=== PATIENT | male | born 1950 | race African-American/Black ===

== ENCOUNTER 2016-04-29 14:30 | Emergency (ER) | payer MEDICAID, MEDICARE ==
[~2016-04-29] VITALS: Ht 185.4 cm; Wt 82.0 kg
[~2016-04-29 14:30] MED LIST: AMOX500T2 PO; ASPI-864 PO; DOXA4TAB3 PO; NIFE30TA8 PO
[2016-04-29] MEDS ORDERED: MORPHINE SULFATE 4 MG/ML CPJ (NOT FOR IM USE) IV ONE (18:00)
[2016-04-29] MEDS ORDERED: ONDANSETRON HCL 4MG/2ML VIAL IV ONE (18:00)
[2016-04-29 19:59] VITALS: BP 142/85
== END 2016-04-29 20:17 | disposition home or self-care (01) ==
LOC: ER 15:25
DX: T81.30XA Disruption of wound, unspecified, initial encounter (principal); Y83.8 Other surgical procedures as the cause of abnormal reaction of the patient, or of later complication, without mention of misadventure at the time of the procedure; Y92.89 Other specified places as the place of occurrence of the external cause; I12.9 Hypertensive chronic kidney disease with stage 1 through stage 4 chronic kidney disease, or unspecified chronic kidney disease; N18.9 Chronic kidney disease, unspecified; I69.354 Hemiplegia and hemiparesis following cerebral infarction affecting left non-dominant side; E78.00 Pure hypercholesterolemia, unspecified; Z79.82 Long term (current) use of aspirin
CPT/HCPCS: 96374; 96375; 99284; J2270; J2405; Z7610

== ENCOUNTER 2016-10-15 16:48 | Emergency (ER) | payer MEDICARE ==
[~2016-10-15] VITALS: Ht 180.3 cm; Wt 79.0 kg
[2016-10-15 21:55] VITALS: BP 109/65
== END 2016-10-15 22:52 | disposition home or self-care (01) ==
LOC: ER 17:53
DX: R58 Hemorrhage, not elsewhere classified (principal); Z88.6 Allergy status to analgesic agent; Z79.82 Long term (current) use of aspirin; Z85.89 Personal history of malignant neoplasm of other organs and systems
CPT/HCPCS: 99283

== ENCOUNTER 2016-10-22 09:42 | Emergency (ER) | payer MEDICARE ==
[~2016-10-22] VITALS: Ht 182.9 cm; Wt 80.0 kg
[2016-10-22] MEDS ORDERED: LIDOCAINE HCL 1% 20ML VIAL (Pyxis) INJ MC ONE (11:00)
[2016-10-22] MEDS ORDERED: VANCOMYCIN 1 G PREMIX 200 ML IV SCH (11:45)
[2016-10-22 12:33] LABS: CHLORIDE 108 mEq/L (98-107)
[2016-10-22 12:34] LABS: BASOPHILS % 0.8 % (0.0-2.0); EOSINOPHILS % 0.9 % (0.0-5.0); HEMATOCRIT. 37.9 % (42.0-52.0); LYMPHOCYTES % 28.9 % (20.0-50.0); MEAN CORPUSCULAR HEMOGLOBIN 31.8 pg (28.0-32.0); MEAN CORPUSCULAR VOLUME 92.5 fL (80.0-94.0); MEAN PLATELET VOLUME 8.1 fl (7.4-10.4); MONOCYTES % 7.7 % (2.0-8.0); NEUTROPHILS % 61.7 % (40.0-76.0); PLATELET 207 x1000/uL (130-400); RED CELL DISTRIBUTION WIDTH 13.6 % (11.6-14.6)
[2016-10-22 12:36] LABS: INR 1.1; PROTHROMBIN TIME 11.1 sec (9.4-11.6)
[2016-10-22 12:42] LABS: CARBON DIOXIDE 23 mEq/L (21-32)
[2016-10-22] MEDS ORDERED: MORPHINE SULFATE 4 MG/ML CPJ (NOT FOR IM USE) IV ONE (13:15)
[2016-10-22 15:05] VITALS: BP 151/91
== END 2016-10-22 15:12 | disposition short-term general hospital (02) ==
LOC: ER 10:08
DX: L98.499 Non-pressure chronic ulcer of skin of other sites with unspecified severity (principal); R58 Hemorrhage, not elsewhere classified; M86.9 Osteomyelitis, unspecified; F17.210 Nicotine dependence, cigarettes, uncomplicated; Z88.6 Allergy status to analgesic agent; Z79.82 Long term (current) use of aspirin; Z85.89 Personal history of malignant neoplasm of other organs and systems; Z86.73 Personal history of transient ischemic attack (TIA), and cerebral infarction without residual deficits
CPT/HCPCS: 36415; 73130; 80053; 85025; 85610; 85651; 86141; 96365; 96375; 99285; J2270; J3370; J3490

== ENCOUNTER 2016-10-29 09:14 | Emergency (ER) | payer MEDICARE ==
[~2016-10-29] VITALS: Ht 175.3 cm; Wt 75.0 kg
[2016-10-29 13:15] VITALS: BP 148/82
== END 2016-10-29 13:34 | disposition home or self-care (01) ==
LOC: ER 12:02
DX: Z48.00 Encounter for change or removal of nonsurgical wound dressing (principal)
CPT/HCPCS: 99283

== ENCOUNTER 2025-02-09 01:28 | Inpatient (IN) | payer MEDICARE, MEDICAID ==
[~2025-02-09] VITALS: Ht 175.3 cm; Wt 78.6 kg
[2025-02-09 01:44] VITALS: O2SAT 96
[2025-02-09 03:03] LABS: BASOPHILS % 0.3 % (0.0-2.0); EOSINOPHILS % 1.1 % (0.0-5.0); HEMATOCRIT. 38.7 % (42.0-52.0); HEMOGLOBIN. 12.7 g/dL (14.0-18.0); LYMPHOCYTES % 11.6 % (20.0-50.0); MEAN PLATELET VOLUME 8.0 fl (7.4-10.4); MONOCYTES % 8.1 % (2.0-8.0); NEUTROPHILS % 78.9 % (40.0-76.0); PLATELET 208 x1000/uL (130-400); RED BLOOD CELL COUNT 4.09 mill/uL (4.7-6.1); RED CELL DISTRIBUTION WIDTH 14.1 % (11.6-14.6)
[2025-02-09 03:15] LABS: CREATININE 1.3 mg/dL (0.6-1.3)
[2025-02-09 03:16] LABS: PROTEIN TOTAL 6.7 g/dL (6.0-8.3); UREA NITROGEN BLOOD 15 mg/dL (9-23)
[2025-02-09 03:17] LABS: ASPARTATE AMINOTRANSFERASE 13 IU/L (<34); BILIRUBIN DIRECT 0.2 mg/dL (<=3.0); BILIRUBIN TOTAL 0.5 mg/dL (0.1-1.0)
[2025-02-09 03:26] LABS: TROPONIN I HIGH SENSITIVITY 129 ng/L (3.0-53)
[2025-02-09] MEDS: ENOXAPARIN 80MG/0.8ML SYR SUBCUT ONE (03:36)
[2025-02-09 04:38] VITALS: BP 124/71; PULSE 73; RESP 25; TEMP 36.5292
[2025-02-09] MEDS ORDERED: INFLUENZA VACCINE 05/PF 0.5 ML SYRINGE IM ONE (06:15)
[2025-02-09] MEDS ORDERED: ZOLPIDEM TARTRATE 5MG TABLET PO PRN (06:45)
[2025-02-09] MEDS ORDERED: NALOXONE HCL 0.4MG/ML VIAL IV PRN (06:45)
[2025-02-09] MEDS ORDERED: ONDANSETRON HCL 4MG/2ML INJ IV PRN (06:45)
[2025-02-09] MEDS ORDERED: ACETAMINOPHEN 325MG TABLET PO PRN (06:45)
[2025-02-09] MEDS ORDERED: HYDROCODONE/ACETAMINOPHEN 5/325MG TABLET PO PRN (06:45)
[2025-02-09] MEDS ORDERED: MAGNESIUM/ALUMINUM HYDROXIDE/SIMETHICONE 30ML UDC PO PRN (06:45)
[2025-02-09] MEDS ORDERED: IPRATROPIUM/ALBUTEROL 0.5-3(2.5)MG/3ML NEB NEB PRN (06:45)
[2025-02-09] MEDS: ENOXAPARIN 80MG/0.8ML SYR SUBCUT SCH ×2 (07:00→18:57)
[2025-02-09 07:50] LABS: CLARITY URINE CLEAR (CLEAR); COLOR URINE YELLOW (YELLOW); GLUCOSE URINE NEGATIVE (NEGATIVE); KETONES URINE NEGATIVE (NEGATIVE); LEUKOCYTE ESTERASE URINE NEGATIVE (NEGATIVE); NITRITE URINE NEGATIVE (NEGATIVE); OCCULT BLOOD URINE NEGATIVE (NEGATIVE); PH URINE 5.5 (4.5-8.0); PROTEIN URINE NEGATIVE (NEGATIVE); SPECIFIC GRAVITY URINE 1.016 (1.005-1.030); UROBILINOGEN URINE 0.2 E.U./dL (0.2-1.0)
[2025-02-09 08:00] VITALS: BP 129/74; PULSE 78; RESP 17; TEMP 36.6
[2025-02-09 08:03] LABS: *AMPHETAMINES SCREEN URINE NEGATIVE (NEGATIVE); *BARBITURATES SCREEN URINE NEGATIVE (NEGATIVE); *BENZODIAZEPINES SCREEN URINE NEGATIVE (NEGATIVE); *COCAINE SCREEN URINE NEGATIVE (NEGATIVE)
[2025-02-09 08:04] LABS: CANNABINOID URINE SCREEN PRESUMPTIVE POSITIVE (NEGATIVE); ECSTASY MDMA SCREEN URINE NEGATIVE (NEGATIVE); METHADONE URINE SCREEN NEGATIVE (NEGATIVE); OPIATES URINE SCREEN NEGATIVE (NEGATIVE); PHENCYCLIDINE URINE SCREEN NEGATIVE (NEGATIVE)
[2025-02-09] MEDS: PANTOPRAZOLE SODIUM 40 MG/VIAL IV SCH (09:39)
[2025-02-09] MEDS: ASPIRIN 81MG EC TABLET PO SCH (09:39)
[2025-02-09 11:24] LABS: INR 1.0
[2025-02-09 12:00] VITALS: BP 125/70; PULSE 72; RESP 22; TEMP 36.6
[2025-02-09 12:02] LABS: HEPATITIS C AB NON REACTIVE (Neg) (Negative)
[2025-02-09] MEDS ORDERED: IOHEXOL-350 100 ML BOTTLE ONE (13:11)
[2025-02-09 16:00] VITALS: BP 147/84; PULSE 70; RESP 19; TEMP 36.7
[2025-02-09 20:00] VITALS: BP 144/80; PULSE 65; RESP 18; TEMP 36.8; O2SAT 90
[2025-02-09] MEDS: ATORVASTATIN CALCIUM 40MG TABLET PO SCH (20:50)
[2025-02-09] MEDS: MAGNESIUM 4 G PREMIX 100 ML IV SCH (20:50)
[2025-02-10] VITALS: BP 133/85; PULSE 67; RESP 18; TEMP 36.7
[2025-02-10 00:36] LABS: TROPONIN I HIGH SENSITIVITY 6424 ng/L (3.0-53)
[2025-02-10 04:00] VITALS: BP 143/80; PULSE 60; RESP 21; TEMP 36.6; O2SAT 94
[2025-02-10 08:00] VITALS: BP 162/96; PULSE 69; RESP 15; TEMP 36.7; O2SAT 98
[2025-02-10 09:01] LABS: BASOPHILS % 1.0 % (0.0-2.0); EOSINOPHILS % 4.2 % (0.0-5.0); HEMATOCRIT. 40.0 % (42.0-52.0); HEMOGLOBIN. 13.0 g/dL (14.0-18.0); LYMPHOCYTES % 39.7 % (20.0-50.0); MEAN PLATELET VOLUME 8.1 fl (7.4-10.4); MONOCYTES % 11.8 % (2.0-8.0); NEUTROPHILS % 43.3 % (40.0-76.0); PLATELET 203 x1000/uL (130-400); RED BLOOD CELL COUNT 4.12 mill/uL (4.7-6.1); RED CELL DISTRIBUTION WIDTH 14.3 % (11.6-14.6)
[2025-02-10 09:30] LABS: CREATININE 1.1 mg/dL (0.6-1.3); TRIGLYCERIDE 49 mg/dL (0-150); UREA NITROGEN BLOOD 10 mg/dL (9-23)
[2025-02-10 09:31] LABS: LDL CHOLESTEROL 66 mg/dL (5-100)
[2025-02-10] MEDS: ISOSORBIDE MONONITRATE 30MG TABLET SR 24HR PO SCH (11:50)
[2025-02-10 12:00] VITALS: BP_SYST 131; BP_SYST 145; BP_DIAS 45; BP_DIAS 94; PULSE 58; PULSE 64; RESP 18; TEMP 36.4; O2SAT 96
[2025-02-10] MEDS: INFLUENZA VACCINE 05/PF 0.5 ML SYRINGE IM ONE (15:36)
[2025-02-10 16:00] VITALS: BP 142/95; PULSE 85; RESP 18; TEMP 36.8; O2SAT 96
[2025-02-10 20:00] VITALS: BP 145/97; PULSE 68; RESP 17; TEMP 36.9; O2SAT 99
[2025-02-11] VITALS: BP 137/100; PULSE 66; RESP 20; TEMP 36.8; O2SAT 95
[2025-02-11 04:00] VITALS: BP 131/92; PULSE 76; RESP 19; TEMP 36.6; O2SAT 96
[2025-02-11] MEDS ORDERED: HEPARIN 1000 UNITS/ML 10ML ONE ×3 (07:57→10:45)
[2025-02-11] MEDS ORDERED: VERAPAMIL HCL 2.5 MG/1 ML 2ML VIAL IV ONE (07:57)
[2025-02-11] MEDS ORDERED: LIDOCAINE HCL 1% 20ML VIAL ONE (07:57)
[2025-02-11] MEDS ORDERED: IODIXANOL 320MG/ML 100 ML BOTTLE IV ONE ×2 (07:58→10:28)
[2025-02-11 08:00] VITALS: BP 130/99; PULSE 71; RESP 21; TEMP 36.9; O2SAT 96
[2025-02-11 08:12] LABS: CREATININE 1.2 mg/dL (0.6-1.3)
[2025-02-11 08:13] LABS: UREA NITROGEN BLOOD 13 mg/dL (9-23)
[2025-02-11 08:24] LABS: BASOPHILS % 0.9 % (0.0-2.0); EOSINOPHILS % 2.3 % (0.0-5.0); HEMATOCRIT. 37.3 % (42.0-52.0); HEMOGLOBIN. 12.7 g/dL (14.0-18.0); LYMPHOCYTES % 25.2 % (20.0-50.0); MEAN PLATELET VOLUME 8.4 fl (7.4-10.4); MONOCYTES % 14.1 % (2.0-8.0); NEUTROPHILS % 57.5 % (40.0-76.0); PLATELET 193 x1000/uL (130-400); RED BLOOD CELL COUNT 3.92 mill/uL (4.7-6.1); RED CELL DISTRIBUTION WIDTH 13.8 % (11.6-14.6)
[2025-02-11] MEDS ORDERED: MIDAZOLAM HCL 2 MG/2 ML VIAL ONE (09:44)
[2025-02-11] MEDS ORDERED: FENTANYL CITRATE/PF 50MCG/ML 2ML VIAL ONE (09:44)
[2025-02-11] MEDS ORDERED: DIPHENHYDRAMINE 50MG/ML VIAL ONE (09:44)
[2025-02-11] MEDS ORDERED: HYDRALAZINE 20MG/ML VIAL ONE (11:16)
[2025-02-11 12:00] VITALS: BP 120/62; PULSE 63; RESP 15; TEMP 36.8; O2SAT 99
[2025-02-11] MEDS ORDERED: ATROPINE SULFATE 1MG/10ML SYR IV PRN (12:00)
[2025-02-11] MEDS: SODIUM CHLORIDE 0.45% 1,000 ML IV SCH (13:02)
[2025-02-11 16:00] VITALS: BP 146/84; PULSE 99; RESP 20; TEMP 36.7; O2SAT 98
[2025-02-11] MEDS ORDERED: HEPARIN 25,000 UNITS PREMIX 250 ML IV SCH (20:00)
[2025-02-11 21:53] VITALS: BP 139/100; PULSE 92; RESP 24; TEMP 36.9
[2025-02-11] MEDS: HEPARIN 25,000 UNITS PREMIX 250 ML IV SCH (22:08)
[2025-02-12] VITALS: BP 127/104; PULSE 70; RESP 21; TEMP 37.1; O2SAT 97
[2025-02-12] MEDS ORDERED: HEPARIN BOLUS PRN aPTT 30-44 IV (02:00)
[2025-02-12] MEDS ORDERED: HEPARIN BOLUS PRN aPTT <30 IV (02:00)
[2025-02-12 04:00] VITALS: BP 132/93; PULSE 78; RESP 21; TEMP 36.9; O2SAT 95
[2025-02-12 07:26] LABS: HEMATOCRIT. 37.7 % (42.0-52.0); HEMOGLOBIN. 12.7 g/dL (14.0-18.0); MEAN PLATELET VOLUME 9.5 fl (7.4-10.4); PLATELET 176 x1000/uL (130-400); RED BLOOD CELL COUNT 3.98 mill/uL (4.7-6.1); RED CELL DISTRIBUTION WIDTH 13.7 % (11.6-14.6)
[2025-02-12 07:40] LABS: CREATININE 1.2 mg/dL (0.6-1.3)
[2025-02-12 07:41] LABS: UREA NITROGEN BLOOD 14 mg/dL (9-23)
[2025-02-12 08:00] VITALS: BP 143/108; PULSE 85; RESP 20; TEMP 36.9; O2SAT 98
[2025-02-12 12:00] VITALS: BP 156/103; PULSE 85; RESP 23; TEMP 36.6; O2SAT 95
[2025-02-12 16:00] VITALS: BP 131/100; PULSE 85; RESP 14; TEMP 36.3; O2SAT 96
[2025-02-12] MEDS: CLOPIDOGREL 75MG TABLET PO SCH (17:21)
[2025-02-12 19:19] LABS: EOSINOPHILS % MANUAL 2.0 % (0.0-5.0); LYMPHOCYTES % MANUAL 33.0 % (20.0-50.0); MONOCYTES % MANUAL 13.0 % (2.0-8.0); NEUTROPHILS % MANUAL 52.0 % (45.0-75.0); PLATELET ESTIMATE NORMAL
[2025-02-12 20:00] VITALS: BP 140/92; PULSE 85; RESP 23; TEMP 36.8; O2SAT 96
[2025-02-13] VITALS (7 sets, daily range): BP systolic 126–170; BP diastolic 78–102; PULSE 66–96; RESP 16–28; TEMP 36.4–36.9; O2SAT 93–99
[2025-02-13] MEDS: CLOPIDOGREL 75MG TABLET PO SCH (08:34)
[2025-02-13] MEDS: FAMOTIDINE 20MG/2ML VIAL IV SCH (20:20)
[2025-02-14] VITALS: BP 143/92; PULSE 67; RESP 19; TEMP 36.6; O2SAT 97
[2025-02-14 04:00] VITALS: BP 148/96; PULSE 66; RESP 19; O2SAT 98
[2025-02-14] MEDS ORDERED: LIDOCAINE HCL 1% 20ML VIAL ONE (07:30)
[2025-02-14] MEDS ORDERED: HEPARIN 1000 UNITS/ML 10ML ONE ×2 (07:30→09:30)
[2025-02-14] MEDS ORDERED: IODIXANOL 320 MG/ML 150ML BOTTLE IV ONE ×2 (07:30→10:07)
[2025-02-14 07:40] LABS: HEMATOCRIT. 36.6 % (42.0-52.0); HEMOGLOBIN. 12.2 g/dL (14.0-18.0); MEAN PLATELET VOLUME 8.6 fl (7.4-10.4); PLATELET 176 x1000/uL (130-400); RED BLOOD CELL COUNT 3.84 mill/uL (4.7-6.1); RED CELL DISTRIBUTION WIDTH 13.8 % (11.6-14.6)
[2025-02-14 07:41] LABS: CREATININE 1.1 mg/dL (0.6-1.3); UREA NITROGEN BLOOD 13 mg/dL (9-23)
[2025-02-14 08:00] VITALS: BP 134/97; PULSE 66; RESP 20; TEMP 36.4; O2SAT 97
[2025-02-14] MEDS ORDERED: DIPHENHYDRAMINE 50MG/ML VIAL ONE (08:58)
[2025-02-14] MEDS ORDERED: FENTANYL CITRATE/PF 50MCG/ML 2ML VIAL ONE (08:58)
[2025-02-14] MEDS ORDERED: MIDAZOLAM HCL 2 MG/2 ML VIAL ONE (08:59)
[2025-02-14] MEDS ORDERED: EPINEPHRINE 0.1MG/ML (1:10,000) 10ML SYR ONE (09:07)
[2025-02-14] MEDS ORDERED: ATROPINE SULFATE 1MG/10ML SYR ONE (09:07)
[2025-02-14] MEDS ORDERED: CLOPIDOGREL 75MG TABLET ONE (10:24)
[2025-02-14] MEDS ORDERED: HYDRALAZINE 20MG/ML VIAL ONE (10:28)
[2025-02-14] MEDS: ACETAMINOPHEN 325MG TABLET PO PRN (11:57)
[2025-02-14 12:00] VITALS: BP 119/68; PULSE 57; RESP 20; TEMP 36.3; O2SAT 98
[2025-02-14] MEDS ORDERED: ACETAMINOPHEN 325MG TABLET PO PRN (12:30)
[2025-02-14] MEDS ORDERED: ATROPINE SULFATE 1MG/10ML SYR IV PRN (12:30)
[2025-02-14 16:00] VITALS: BP 146/95; PULSE 77; RESP 20; TEMP 36.4; O2SAT 98
[2025-02-14 19:24] LABS: EOSINOPHILS % MANUAL 3.0 % (0.0-5.0); LYMPHOCYTES % MANUAL 29.0 % (20.0-50.0); MONOCYTES % MANUAL 9.0 % (2.0-8.0); NEUTROPHILS % MANUAL 59.0 % (45.0-75.0); PLATELET ESTIMATE NORMAL
[2025-02-14 20:00] VITALS: BP 158/93; PULSE 84; RESP 21; TEMP 36.8; O2SAT 98
[2025-02-15 00:49] VITALS: BP 168/88; PULSE 71; RESP 19; TEMP 37; O2SAT 99
[2025-02-15] MEDS: CLONIDINE 0.1MG TABLET PO PRN (01:17)
[2025-02-15 04:00] VITALS: BP 141/93; PULSE 72; RESP 21; TEMP 36.5; O2SAT 96
[2025-02-15 06:51] LABS: BASOPHILS % 0.5 % (0.0-2.0); EOSINOPHILS % 0.7 % (0.0-5.0); HEMATOCRIT. 34.7 % (42.0-52.0); HEMOGLOBIN. 11.8 g/dL (14.0-18.0); LYMPHOCYTES % 19.6 % (20.0-50.0); MEAN PLATELET VOLUME 8.9 fl (7.4-10.4); MONOCYTES % 14.6 % (2.0-8.0); NEUTROPHILS % 64.6 % (40.0-76.0); PLATELET 183 x1000/uL (130-400); RED BLOOD CELL COUNT 3.68 mill/uL (4.7-6.1); RED CELL DISTRIBUTION WIDTH 13.6 % (11.6-14.6)
[2025-02-15 07:05] LABS: CREATININE 1.1 mg/dL (0.6-1.3); UREA NITROGEN BLOOD 11 mg/dL (9-23)
[2025-02-15 07:53] VITALS: BP 135/88; PULSE 72; RESP 19; TEMP 98.1
[2025-02-15 08:00] VITALS: BP 135/88; PULSE 72; RESP 19; TEMP 36.7; O2SAT 97
[2025-02-15] MEDS ORDERED: ASPI-864 PO (10:59)
[2025-02-15] MEDS ORDERED: ISOS30TA91 PO (10:59)
[2025-02-15] MEDS ORDERED: CLOP-31 PO (10:59)
[2025-02-15] MEDS ORDERED: LIP40 PO (10:59)
[2025-02-15 12:00] VITALS: BP 120/87; PULSE 79; RESP 23; TEMP 36.8; O2SAT 97
== END 2025-02-15 13:47 | disposition home or self-care (01) | DRG 322 ==
LOC: ER 01:28 → EDBEDREQ 03:35 → EDBEDREQTM 03:35 → ENRESERV 03:49 → 3WST 04:16
PROVIDERS: ADMIT Internal Medicine; ATTEND Internal Medicine
PROC: 02703ZZ Dilation of Coronary Artery, One Artery, Percutaneous Approach (ICD-10-PCS; 2025-02-11)
PROC: 4A033BC Measurement of Arterial Pressure, Coronary, Percutaneous Approach (ICD-10-PCS; 2025-02-11)
PROC: 4A023N7 Measurement of Cardiac Sampling and Pressure, Left Heart, Percutaneous Approach (ICD-10-PCS; 2025-02-11)
PROC: B211YZZ Fluoroscopy of Multiple Coronary Arteries using Other Contrast (ICD-10-PCS; 2025-02-11)
PROC: 0270366 Dilation of Coronary Artery, One Artery, Bifurcation, with Three Drug-eluting Intraluminal Devices, Percutaneous Approach (ICD-10-PCS; principal; 2025-02-14)
PROC: B41FYZZ Fluoroscopy of Right Lower Extremity Arteries using Other Contrast (ICD-10-PCS; 2025-02-14)
PROC: B240ZZ3 Ultrasonography of Single Coronary Artery, Intravascular (ICD-10-PCS; 2025-02-14)
PROC: B210YZZ Fluoroscopy of Single Coronary Artery using Other Contrast (ICD-10-PCS; 2025-02-14)
DX: I21.4 Non-ST elevation (NSTEMI) myocardial infarction (principal); I69.354 Hemiplegia and hemiparesis following cerebral infarction affecting left non-dominant side; E11.22 Type 2 diabetes mellitus with diabetic chronic kidney disease; I12.9 Hypertensive chronic kidney disease with stage 1 through stage 4 chronic kidney disease, or unspecified chronic kidney disease; N18.9 Chronic kidney disease, unspecified; I25.10 Atherosclerotic heart disease of native coronary artery without angina pectoris; Z63.4 Disappearance and death of family member; Z82.49 Family history of ischemic heart disease and other diseases of the circulatory system; Z87.891 Personal history of nicotine dependence; Z88.6 Allergy status to analgesic agent
CPT/HCPCS: 36415; 71045; 71275; 80048; 80061; 80076; 80305; 81003; 83036; 83735; 83880; 84443; 84484; 85025; 85347; 85379; 86705; 87340; 90686; 92920; 92928; 92978; 93005; 93306; 93454; 93458; 93571; 93970; 99285; A4606; A4615; C1725; C1753; C1769; C1874; C1887; C1893; J0360; J0461; J1200; J1308; J1644; J1650; J2003; J2250; J2470; J3010; J3475; J3490; Q9967